=== PATIENT | female | born 1975 | race Caucasian/White ===

== ENCOUNTER 2018-05-05 11:50 | Emergency (ER) | payer MEDICAID ==
[~2018-05-05] VITALS: Ht 160 cm; Wt 59.3 kg
[~2018-05-05 11:50] MED LIST: IBUP-1223 PO; LISI-170 PO; OXYC-307 PO
[2018-05-05 11:55] VITALS: BP 154/97
[2018-05-05] MEDS ORDERED: KETOROLAC 30 MG/1 ML ONE (12:25)
[2018-05-05] MEDS ORDERED: KETOROLAC 30 MG/1 ML IM ONE (12:30)
== END 2018-05-05 13:26 | disposition home or self-care (01) ==
LOC: ED 13:15
DX: S80.02XA Contusion of left knee, initial encounter (principal); I10 Essential (primary) hypertension; F17.210 Nicotine dependence, cigarettes, uncomplicated; B18.2 Chronic viral hepatitis C; X58.XXXA Exposure to other specified factors, initial encounter; Y93.89 Activity, other specified; Y92.89 Other specified places as the place of occurrence of the external cause; Y99.8 Other external cause status
CPT/HCPCS: 29505; 73564; 96372; 99284; J1885

== ENCOUNTER 2018-11-20 14:53 | Emergency (ER) | payer MEDICAID ==
[~2018-11-20] VITALS: Ht 157.5 cm; Wt 61.7 kg
[2018-11-20 15:17] VITALS: BP 133/101
[2018-11-20] MEDS ORDERED: KETOROLAC 30 MG/1 ML ONE (17:39)
[2018-11-20] MEDS ORDERED: OXYcodone/APAP 5/325MG TABLET ONE (17:39)
[2018-11-20] MEDS ORDERED: OXYcodone/APAP 5/325MG TABLET PO ONE (18:00)
[2018-11-20] MEDS ORDERED: KETOROLAC 60 MG/2 ML IM ONE (18:00)
== END 2018-11-20 18:09 | disposition home or self-care (01) ==
LOC: ED 18:03
DX: S39.012A Strain of muscle, fascia and tendon of lower back, initial encounter (principal); M54.42 Lumbago with sciatica, left side; M41.9 Scoliosis, unspecified; I10 Essential (primary) hypertension; X58.XXXA Exposure to other specified factors, initial encounter; Y93.89 Activity, other specified; Y92.89 Other specified places as the place of occurrence of the external cause; Y99.8 Other external cause status
CPT/HCPCS: 72110; 96372; 99283; J1885